=== PATIENT | male | born 1970 | race Caucasian/White ===

== ENCOUNTER 2018-07-25 14:27 | Emergency (ER) | payer OTHER ==
[~2018-07-25] VITALS: Ht 180.3 cm; Wt 72.6 kg
[2018-07-25] MEDS ORDERED: BACITRAYCIN PLU28 GM T (14:57)
[2018-07-25] MEDS ORDERED: DOXYCYCLINE100 M3 PO (14:57)
== END 2018-07-25 16:00 | disposition home or self-care (01) ==
LOC: ED 14:27
DX: S61.051A Open bite of right thumb without damage to nail, initial encounter (principal); Z88.0 Allergy status to penicillin; W54.0XXA Bitten by dog, initial encounter; Y93.01 Activity, walking, marching and hiking; Y92.89 Other specified places as the place of occurrence of the external cause; Y99.8 Other external cause status

== ENCOUNTER 2018-08-08 12:30 | Emergency (ER) | payer OTHER ==
[~2018-08-08] VITALS: Ht 180.3 cm; Wt 72.6 kg
[~2018-08-08 12:30] MED LIST: BACITRAYCIN PLU28 GM T; DOXYCYCLINE100 M3 PO
[2018-08-08 12:32] VITALS: BP 112/77
== END 2018-08-08 13:18 | disposition home or self-care (01) ==
LOC: ED 12:30
DX: M79.644 Pain in right finger(s) (principal); Z29.14 Encounter for prophylactic rabies immune globulin; Z88.0 Allergy status to penicillin; W11.XXXA Fall on and from ladder, initial encounter; Y93.89 Activity, other specified; Y92.89 Other specified places as the place of occurrence of the external cause; Y99.8 Other external cause status

== ENCOUNTER 2019-11-28 12:22 | Emergency (ER) | payer OTHER ==
[~2019-11-28] VITALS: Ht 180.3 cm; Wt 72.6 kg
[2019-11-28 12:39] VITALS: BP 121/71
[2019-11-28] MEDS ORDERED: LIDEX 0.05% CRE15 GM T (13:21)
[2019-11-28] MEDS ORDERED: CEPHALEXIN500 M1 PO (13:21)
== END 2019-11-28 13:22 | disposition home or self-care (01) ==
LOC: ED 12:22
DX: L25.9 Unspecified contact dermatitis, unspecified cause (principal); Z88.0 Allergy status to penicillin; Z79.899 Other long term (current) drug therapy

== ENCOUNTER 2021-08-02 18:34 | Emergency (ER) | payer OTHER ==
[~2021-08-02] VITALS: Ht 180.3 cm; Wt 72.6 kg
[~2021-08-02 18:34] MED LIST changes: +CEPHALEXIN500 M1 PO; +LIDEX 0.05% CRE15 GM T
[2021-08-02 18:41] VITALS: BP 110/80
[2021-08-02] MEDS ORDERED: PREDNISONE20 M1 PO (19:19)
== END 2021-08-02 19:50 | disposition home or self-care (01) ==
LOC: ED 18:34
DX: L23.7 Allergic contact dermatitis due to plants, except food (principal); Z88.0 Allergy status to penicillin

== ENCOUNTER 2023-05-31 21:25 | Emergency (ER) | payer OTHER ==
[~2023-05-31] VITALS: Ht 180.3 cm; Wt 61.2 kg
[~2023-05-31 21:25] MED LIST changes: +PREDNISONE20 M1 PO
[2023-05-31 21:37] VITALS: BP 126/90
[2023-05-31] MEDS ORDERED: Bacitracin Zinc 14 GM TUBE T ONE (21:45)
[2023-05-31] MEDS ORDERED: SILVER SULFADIAZINE 25 GM TUBE T ONE (21:45)
[2023-05-31 22:16] LABS: BASO # 0.1 10*3/uL (0.0-0.1); BASO % 0.8 % (0.0-1.0); EOS # 0.3 10*3/uL (0.0-0.4); EOS % 3.4 % (1.0-4.0); HEMATOCRIT 42.6 % (42.0-52.0); LYMPH # 1.4 10*3/uL (1.3-4.4); LYMPH % 16.9 % (27.0-41.0); MEAN CELL VOLUME 91.2 fl (80.0-94.0); MEAN PLATELET VOLUME 8.6 fl (9.6-12.3); MONO # 0.7 10*3/uL (0.1-1.0); MONO % 8.6 % (3.0-9.0); NEUT # 5.9 10*3/uL (2.3-7.9); NEUT % 70.1 % (47.0-73.0); PLATELET COUNT AUTOMATED 284 10*3/uL (130-400); RED BLOOD COUNT 4.67 10*6/uL (4.50-5.90); RED CELL DISTRI WIDTH 11.8 % (0-14.5); WHITE BLOOD COUNT 8.5 10*3/uL (4.8-10.8)
[2023-05-31 22:28] LABS: ACT PARTIAL THROMBO TIME 31.3 SECONDS (20.0-32.1)
[2023-05-31 22:33] LABS: ALKALINE PHOSPHATASE 105 U/L (46-116); BUN 19 mg/dl (9-23); CHLORIDE 101 mmol/L (98-107); CPK 126 U/L (34-171); POTASSIUM 4.1 mmol/L (3.4-5.1); SGPT/ALT 16 U/L (5-49); TOTAL PROTEIN 7.4 gm/dL (6.0-8.0)
[2023-05-31] MEDS ORDERED: BACITRACIN28.4 GM T (23:05)
[2023-05-31] MEDS ORDERED: VIBRAMYCIN100 MG PO (23:05)
[2023-05-31] MEDS ORDERED: SILVADENE20 GM T (23:05)
[2023-05-31] MEDS ORDERED: [UNRECOGNIZED DRUG - REMARK] T (23:06)
== END 2023-05-31 23:36 | disposition home or self-care (01) ==
LOC: ED 21:25
PROVIDERS: Internal Medicine
DX: T21.22XA Burn of second degree of abdominal wall, initial encounter (principal); L02.512 Cutaneous abscess of left hand; T31.0 Burns involving less than 10% of body surface; R10.2 Pelvic and perineal pain; Z88.0 Allergy status to penicillin; X08.8XXA Exposure to other specified smoke, fire and flames, initial encounter; Y93.89 Activity, other specified; Y92.89 Other specified places as the place of occurrence of the external cause; Y99.8 Other external cause status

== ENCOUNTER → 2023-06-10 | Outpatient (CLI) | payer OTHER ==
[~2023-06-10] MED LIST changes: +BACITRACIN28.4 GM T; +SILVADENE20 GM T; +VIBRAMYCIN100 MG PO; +[UNRECOGNIZED DRUG - REMARK] T
== END | disposition home or self-care (01) ==
LOC: WOUNDCARE 01:42
PROVIDERS: ATTEND Nurse Practitioner Family
DX: T21.22XA Burn of second degree of abdominal wall, initial encounter (principal); T24.211A Burn of second degree of right thigh, initial encounter; T31.0 Burns involving less than 10% of body surface; L53.9 Erythematous condition, unspecified; Z87.891 Personal history of nicotine dependence; X10.1XXA Contact with hot food, initial encounter; Y93.89 Activity, other specified; Y92.89 Other specified places as the place of occurrence of the external cause; Y99.8 Other external cause status

== ENCOUNTER → 2023-06-17 | Outpatient (CLI) | payer OTHER | END | disposition home or self-care (01) | LOC: WOUNDCARE 03:05 | PROVIDERS: ATTEND Nurse Practitioner Family | DX: T21.22XD Burn of second degree of abdominal wall, subsequent encounter (principal); T24.211D Burn of second degree of right thigh, subsequent encounter; T31.0 Burns involving less than 10% of body surface; L53.9 Erythematous condition, unspecified; Z87.891 Personal history of nicotine dependence; Z79.899 Other long term (current) drug therapy; X10.0XXD Contact with hot drinks, subsequent encounter ==

== ENCOUNTER → 2023-06-25 | Outpatient (CLI) | payer OTHER | END | disposition home or self-care (01) | LOC: WOUNDCARE 02:03 | PROVIDERS: ATTEND Nurse Practitioner Family | DX: T21.22XD Burn of second degree of abdominal wall, subsequent encounter (principal); T24.211D Burn of second degree of right thigh, subsequent encounter; T31.0 Burns involving less than 10% of body surface; L53.9 Erythematous condition, unspecified; Z87.891 Personal history of nicotine dependence; Z79.899 Other long term (current) drug therapy; X10.0XXD Contact with hot drinks, subsequent encounter ==

== ENCOUNTER 2023-07-02 12:45 | Emergency (ER) | payer OTHER ==
[~2023-07-02] VITALS: Wt 74.8 kg
[2023-07-02 12:52] VITALS: BP 136/85
[2023-07-02] MEDS ORDERED: PREDNISONE20 M1 PO (12:57)
[2023-07-02] MEDS ORDERED: methylPREDNISolone sod succ 125 MG VIAL IM ONE (13:00)
== END 2023-07-02 12:58 | disposition home or self-care (01) ==
LOC: ED 12:45
DX: L23.7 Allergic contact dermatitis due to plants, except food (principal); Z88.0 Allergy status to penicillin

== ENCOUNTER 2023-10-12 23:49 | Emergency (ER) | payer OTHER ==
[~2023-10-12] VITALS: Ht 180.3 cm; Wt 73.0 kg
[2023-10-13 00:04] VITALS: BP 144/94
[2023-10-13] MEDS ORDERED: methylPREDNISolone sod succ 125 MG VIAL IM ONE (00:05)
[2023-10-13] MEDS ORDERED: PREDNISONE20 M1 PO (00:08)
== END 2023-10-13 00:13 | disposition home or self-care (01) ==
LOC: ED 23:49
DX: L23.7 Allergic contact dermatitis due to plants, except food (principal); Z88.0 Allergy status to penicillin